=== PATIENT | male | born 1965 | race Caucasian/White ===

== ENCOUNTER 2017-02-05 07:34 | Day surgery (SDC) | payer BC ==
[2017-02-05 08:15] LABS: PROTHROMBIN TIME 12.2 SEC (11.4-15.4)
[2017-02-05 08:16] LABS: PARTIAL THROMBOPLASTIN TIME 32.3 SEC (23.5-35.8)
--- NOTE | 2017-02-05 11:27 | RADIOLOGY REPORT (SQ) ---
EXAM DESCRIPTION: MYELOGRAM LUMBAR; CT LUMBAR SPINE WITH COMPLETED DATE/TIME: 02/05/2017 10:17 am; 02/05/2017 10:27 am REASON FOR STUDY: RADICULOPATHY; RADICULOPATHY LUMBAR REGION M54.16 RADICULOPATHY, LUMBAR REGION COMPARISON: None. FLUOROSCOPY TIME: 29 seconds TECHNIQUE: Fluoroscopic guided lumbar myelogram. LIMITATIONS: None. PROCEDURE: After written consent and assessment were obtained, the patient was brought into the fluo roscopy room and placed prone on the table. The patient's lower back was prepped in a sterile fashio n and an entry site was selected under live fluoroscopic guidance. The entry site was anesthetized wi th 1% lidocaine. The spinal needle was advanced through the skin and into the thecal sac at the level of L2-3. Contrast was injected into the thecal sac. Following the procedure the needle was removed and a sterile bandage was placed of the site. CONTRAST: 13 mL Isovue 200. IMAGES ACQUIRED: 16 TECHNIQUE: After performing lumbar myelogram, axial images were acquired through the lumbar spine wi thout intravenous contrast. Images reviewed with lung, soft tissue and bone windows. Reconstructed coronal and sagittal MPR images reviewed. All images stored on PACS. All CT scanners at this facility use dose modulation, iterative reconstruction, and/or weight based d osing when appropriate to reduce radiation dose to as low as reasonably achievable (ALARA). [facility]: Dose Right [facility]: CareDose [facility]: Dose Right [facility]: Teradose 4D [facility]: [facility]) FINDINGS: Patient is status post posterior fusion L2-3, L3- 4, L4-5 with prosthetic disc and posteri or placed pedicle screws with interconnecting rods at these levels, and left lateral fusion at L4-5. No significant stenosis identified on the spot fluoroscopic images in the standing position. Grade 1 anterolisthesis of L4 relative to L5. DISCS: L1-L2: Mild ventral impression on the contrast column. No nerve root compression. L2-L3: No significant protrusions. No significant stenosis. L3-L4: No significant protrusions. No significant stenosis. L4-L5: No significant protrusions. No significant stenosis. L5-S1: No significant protrusions. No significant stenosis. IMPRESSION: Mild malalignment L4-5 status post multilevel fusion. No significant stenosis. COMMENT: Patient medication list reviewed: Yes- Quality ID# [id number]:Eligible professional attests to doc umenting in the medical record they obtained, updated, or reviewed the patient's current medications. TECHNICAL DOCUMENTATION: JOB ID: [id number] Quality ID # [id number]: Final reports with documentation of one or more dose reduction techniques (e.g., Au tomated exposure control, adjustment of the mA and/or kV according to patient size, use of iterative reconstruction technique) 2010 [employer]- All Rights Reserved
[2017-02-05 12:17] VITALS: BP 101/69
== END 2017-02-05 12:15 | disposition home or self-care (01) ==
LOC: RAD 07:34
PROVIDERS: ATTEND Physician Assistant
PROC: B01BYZZ Fluoroscopy of Spinal Cord using Other Contrast (ICD-10-PCS; principal; 2017-02-05)
DX: M54.16 Radiculopathy, lumbar region (principal)
CPT/HCPCS: 36415; 72132; 72265; 85610; 85730